=== PATIENT | male | born 1990 | race Caucasian/White ===

== ENCOUNTER 2022-08-27 10:14 | Emergency (ER) | payer SELFPAY ==
[2022-08-27 11:06] VITALS: BP 112/69; PULSE 66; RESP 18; TEMP 36.8; O2SAT 95; BMI 25.5
[2022-08-27 11:51] LABS: PCR FLU A Negative PCR FLU A (Negative); PCR FLU B Negative PCR FLU B (Negative); PCR RSV Negative PCR RSV (Negative)
[2022-08-27 11:53] LABS: SARS PCR* Negative SARS-CoV-2 (Negative)
--- NOTE | 2022-08-27 15:39 | ED_ITS ---
HPI - SOB/Dyspnea General Chief Complaint: Shortness of Breath/Dyspnea Stated Complaint: difficulty breathing Time Seen by Provider: 08/27/22 11:09 History of Present Illness HPI Narrative: 32-year-old man presenting to the emergency department complaint of appears to be primarily exertional dyspnea. Even with just standing. He is finding it very fatiguing to do his work at the moment which is rather physical. Has not had a fever. Is about 8 day of symptoms now worries had some cough though this is not a major component. No fever. Twinges of chest pain perhaps indicates the right upper chest. No rashes noted. Was vaccinated for COVID in [place]. He has had COVID twice apparently early on in the pandemic as well as most recently mid late last year. Did take some time to recover his stamina but until this most recent illness had mostly recovered other than times with his lady. He has been diagnosed with pneumonia in the past as well the chest x-ray. Does not have cardiovascular disease that he knows of. No sense of palpitations or arrhythmia. No extremity edema. Is not a sedentary individual. Does not have reactive airway or other airspace disease. Many years ago did did use an inhaler briefly; sounds like this may have been related to illness. Related Data Home Medications Medication Instructions Recorded Confirmed No Known Home Medications 08/27/22 08/27/22 Allergies Allergy/AdvReac Type Severity Reaction Status Date / Time No Known Drug Allergies Allergy Verified 08/27/22 11:06 Review of Systems Status of ROS: Reports: 10 or more systems reviewed and unremarkable except as noted in History and below [facility] Social History Smoking Status: Never smoker Exam Narrative: Exam Narrative: Pleasant. Easily conversant. Cranial nerves 2-12 intact. Breathing easily. Skin is warm and dry. Extremities without edema. No pain to palpation extremities particularly the lower extremities, negative Homans. There is no supraclavicular crepitus. Breath sounds are clear and throughout. No JVD. Heart is in a regular rhythm without murmur rub or gallop. Abdomen is flat and soft. There is mild discomfort to a point of palpation in the right upper chest a few inches from the sternum. Const: Vital Signs, click to edit/add: Vital Signs - 24 hr 08/27/22 11:06 Temperature 98.3 F Pulse Rate [Right Pulse Oximeter] 66 Respiratory Rate 18 Blood Pressure [Ri ght Upper Arm] 112/69 Pulse Oximetry 95 Oxygen Delivery Me thod Room Air Documenting provider has reviewed patient's vital signs: yes Course Vital Signs Vital signs: Initial Vital Signs Temperature 98.3 F 08/27/22 11:06 Temperature Source Temporal Artery Scan 08/27/22 11:06 Pulse Rate 66 08/27/22 11:06 Respiratory Rate 18 08/27/22 11:06 Blood Pressure 112/69 08/27/22 11:06 Blood Pressure Mean 83 08/27/22 11:06 Blood Pressure Position Sitting 08/27/22 11:06 Pulse Oximetry 95 08/27/22 11:06 Oxygen Delivery Method 08/27/22 11:06 Vital Signs Temperature 98.3 F 08/27/22 11:06 Pulse Rate 66 08/27/22 11:06 Respiratory Rate 18 08/27/22 11:06 Blood Pressure 112/69 08/27/22 11:06 Pulse Oximetry 95 08/27/22 11:06 Oxygen Delivery Method 08/27/22 11:06 Temperature 98.3 F 08/27/22 11:06 Pulse Rate 66 08/27/22 11:06 Respiratory Rate 18 08/27/22 11:06 Blood Pressure 112/69 08/27/22 11:06 Pulse Oximetry 95 08/27/22 11:06 Oxygen Delivery Method 08/27/22 11:06 MDM - SOB/Dyspnea MDM Narrative Medical decision making narrative: Does not seem to be showing evidence of a pneumonia other than the exertional dyspnea. Certainly this could be cardiac in etiology though there has not been history beyond this week. Is in a regular rhythm at this time here. No distress at least at rest. Oxygenating fairly well. Differential does include pneumothorax, pneumonia, influenza or COVID, heart failure, bronchitis, reactive airway, pulmonary embolus. We did discuss potential imaging. I think with absence of fever or more vital instability perhaps can treat as more of a ?bronchitis?. He would appreciate that also being without insurance. Prescribing course of prednisone. If not improved in a few days a course of doxycycline. If he is not improved in around 2 weeks time or clearly worsening with follow-up. Triple screen was ultimately negative. Medical Records Attestation: I reviewed the patient's medical records. Lab Data Attestation: I reviewed the patient's lab results. Labs: Lab Results 08/27/22 Range/Units 11:05 SARS-CoV-2 (PCR) Negative SARS-CoV-2 (Negative) Influenza Type A (PCR) Negative PCR FLU A (Negative) Influenza Type B (PCR) Negative PCR FLU B (Negative) RSV (PCR) Negative PCR RSV (Negative) Discharge Plan Discharge Clinical Impression: Exertional dyspnea, URI (upper respiratory infection) Patient Disposition: Home, Self-Care Condition: Stable Additional Instructions: I will call you any of these tests indicate infection. You can take your prescription to [facility]. Start with the prednisone. If you are not improved in 3 days, you can fill the prescription for doxycycline. Doxycycline is your antibiotic. If symptoms continue for 2 weeks yet, I would make a follow-up in clinic. Be seen sooner though if getting worse or starting to have a fever along with the shortness of breath. Te llamar? si cualquiera de estas pruebas indican infecci?n. Puede llevar staley receta a [facility]. Comience con la prednisona. Si no jordan katherine en 3 d?as, puede surtir la receta de doxiciclina. La doxiciclina es staley antibi?corrine. Si los s?ntomas contin?an johnson 2 semanas todav?a, lenny?a un seguimiento en la cl?ariela. Sin embargo, sea visto antes si empeora o comienza a tener fiebre junto con dificultad para respirar. Prescriptions: No Action No Known Home Medications Stand Alone Forms: [employer] Info Instructions
== END 2022-08-27 12:33 | disposition home or self-care (01) ==
LOC: ED 11:56
PROVIDERS: Emergency Provider Family Medicine
DX: R06.09 Other forms of dyspnea (principal); J06.9 Acute upper respiratory infection, unspecified
CPT/HCPCS: 87502; 87634; 87635; 99283

== ENCOUNTER 2022-09-04 23:18 | Emergency (ER) | payer SELFPAY ==
[2022-09-04 23:33] VITALS: BP 118/74; PULSE 65; RESP 14; TEMP 36.9; O2SAT 97; BMI 30.8
[2022-09-05] VITALS: BP 119/72; PULSE 71; RESP 18; O2SAT 97
[2022-09-05 00:30] VITALS: BP 114/80; PULSE 69; RESP 18; O2SAT 97
--- NOTE | 2022-09-05 00:40 | ED.GENADULT ---
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 He was seems the same thing one week ago and given about three days of prednisone and prescription for doxycycline. He only took the doxycycline for one day because gave him a headache. He felt better on the prednisone and worse since he has stopped it. He was not given inhaler but he has used an inhaler before when he had a chest infection. He works two jobs and one of them is outside in the elements. He has had no fevers or chills. Does not productive cough. Related Data Home Medications Medication Instructions Recorded Confirmed No Known Home Medications 08/27/22 09/04/22 Previous Rx's Medication Instructions Recorded albuterol sulfate 90 mcg/actuation 2 puff inhalation Q4-6H PRN 09/05/22 aerosol inhaler shortness of breath or wheezing #8.5 grams prednisone 20 mg tablet 20 mg PO DAILY #14 tabs 09/05/22 Allergies Allergy/AdvReac Type Severity Reaction Status Date / Time No Known Drug Allergies Allergy Verified 09/04/22 23:42 Review of Systems Narrative: Review of systems is outlined above otherwise noted to be negative [facility] Social History Smoking Status: Never smoker Do you use any of these nicotine containing products: None Second hand tobacco smoke exposure: No How often do you have a drink containing alcohol: 2-3 times a week AUDIT-C Alcohol total score: 3 Non-prescribed substance use: denies use Exam Narrative: Exam Narrative: Vitals noted. HEENT: Conjunctiva clear. Tympanic membranes are pearly white bilaterally. Posterior pharynx is clear without erythema or exudate. Neck is supple without adenopathy, thyromegaly. Lungs: Clear to auscultation in all meng. No wheezes, rales, rhonchi. There is some wheezing with forced expiration. No chest wall tenderness. Heart: Regular rate and rhythm without murmur. Extremities: No cyanosis or edema. Good distal pulses. Skin: No abnormalities noted of the exposed skin. Neurologic: Awake, alert, fully oriented. Neurologic exam is nonfocal. Const: Vital Signs, click to edit/add: Vital Signs - 24 hr 09/04/22 23:33 Temperature 98.4 F Pulse Rate [Pulse Oximeter] 65 Respiratory Rate 14 Blood Pressure [Ri ght Upper Arm] 118/74 Pulse Oximetry 97 Oxygen Delivery Me thod Room Air Course Course Hospital Course: Patient was seen and examined. He is not hypoxic. He has normal vital signs. He does not need intervention here in the emergency department he just needs his prescriptions adjusted. He seems to have some bronchospasm that is exacerbated by working in the cold. I do not see any indication for antibiotics. We discussed a slower prednisone taper and use of albuterol and ibuprofen. Vital Signs Vital signs: Initial Vital Signs Respiratory Effort Spontaneous 09/04/22 23:26 Respiratory Depth Normal 09/04/22 23:26 Respiratory Pattern 09/04/22 23:26 Vital Signs Temperature 98.4 F 09/04/22 23:33 Pulse Rate 65 09/04/22 23:33 Respiratory Rate 14 09/04/22 23:33 Blood Pressure 118/74 09/04/22 23:33 Pulse Oximetry 97 09/04/22 23:33 Oxygen Delivery Method 09/04/22 23:33 Temperature 98.4 F 09/04/22 23:33 Pulse Rate 65 09/04/22 23:33 Respiratory Rate 14 09/04/22 23:33 Blood Pressure 118/74 09/04/22 23:33 Pulse Oximetry 97 09/04/22 23:33 Oxygen Delivery Method 09/04/22 23:33 Discharge Plan Discharge Clinical Impression: Exertional dyspnea Patient Disposition: Home, Self-Care Condition: Stable Additional Instructions: Prednisone taper over 12 days, Albuterol 2 puffs every 4 hours as needed, follow up if no better over the next 3-5 days. Prescriptions: New albuterol sulfate 90 mcg/actuation HFA aerosol inhaler 2 puff inhalation Q4-6H PRN (Reason: shortness of breath or wheezing) Qty: 8.5 0RF prednisone 20 mg tablet 20 mg PO DAILY Qty: 14 0RF Rx Instructions: 2 QD x 4 days then 1 QD x 4 days then 1/2 QD x 4 days No Action No Known Home Medications Follow Up/Referrals: Provider,Not a Local [Primary Care Provider] - Stand Alone Forms: [employer] Info Instructions
[2022-09-05 01:00] VITALS: BP 113/71; PULSE 65; RESP 18; O2SAT 98
== END 2022-09-05 01:20 | disposition home or self-care (01) ==
PROVIDERS: Emergency Provider Family Medicine
DX: R06.09 Other forms of dyspnea (principal)
CPT/HCPCS: 99281; 99283; 99284

== ENCOUNTER 2024-12-25 16:47 | Emergency (ER) | payer OTHER, SELFPAY ==
--- OUTSIDE RECORDS SUMMARY | 2024-12-25 16:50 | XMS_ITS | Clinical Summary ---
Author Organization [facility] Address [address] [place] [address]. [place] [address] Care Team Providers Care Stock And Station Agent Name Role Phone No Ref-Primary, Physician Primary Care Provider Allergies No known active allergies Medications guaiFENesin (MUCINEX) 600 MG 12 hr tablet Take 1 tablet (600 mg) by mouth 2 times daily 10 tablet 11/13/2021 Active Social History Tobacco Use Types Packs/Day Years Used Date Smoking Tobacco: Never Assessed Adolescent Education Answer Date Record ed Getting School Help Needed Not on file 05/09 Sex and Gender Information Value Date Recorded Sex Assigned at Not on file Legal Sex Male 6:32 AM PARENT TRAINER Gender Identity Not on file Sexual Orientation Not on file Last Filed Vital Signs Vital Sign Reading Time Taken Comments Blood Pressure 127/78 09/17/2022 11:29 AM PARENT TRAINER Pulse 62 09/17/2022 11:29 AM PARENT TRAINER Temperature 36.9 C (98.5 F) 09/17/2022 9:28 AM PARENT TRAINER Respiratory Rate 25 09/17/2022 11:29 AM PARENT TRAINER Oxygen Saturation 99% 09/17/2022 11:29 AM PARENT TRAINER Inhaled Oxygen Concentration - - Weight 85 kg (187 lb 6.3 oz) 06/29/2020 6:37 AM PARENT TRAINER Height - - Body Mass Index - - Plan of Treatment Health Maintenance Due Date Last Done Comments ADVANCE CARE PLANNING 1989 ANNUAL REVIEW OF HM ORDERS 1989 YEARLY PREVENTIVE VISIT 1992 HIV SCREENING 2004 HEPATITIS C SCREENING 2007 HEPATITIS B IMMUNIZATION (1 of 3 - 19+ 3-dose series) 2008 DTAP/TDAP/TD IMMUNIZATION (1 - Tdap) 2014 COVID-19 Vaccine (1 - 2023-2 5 season) 2024 PHQ-2 (once per calendar year) 2024 INFLUENZA VACCINE (Season Ended) 2025 DIABETES SCREENING 09/17/2025 09/17/2022, 11/13/2021, 06/29/2020 ZOSTER IMMUNIZATION (1 of 2) 2039 HPV IMMUNIZATION Aged Out No longer e ligible based on patient's age to complete this topic MENINGITIS IMMUNIZATION Aged Out No l onger eligible based on patient's age to complete this topic Pneumococcal Vaccine: Pediatrics (0 to 5 Years) and At-Risk Patients (6 to 49 Years) Aged Out No longer eligible b ased on patient's age to complete this topic Procedures Procedure Name Priority Date/Time Associated Diagnosis Comments BASIC METABOLIC PANEL STAT 09/17/2022 9:42 AM PARENT TRAINER from Last 3 Months or Most Recently Relevant to Health Maintenance Results * (ABNORMAL) Basic metabolic panel (09/17/2022 9:42 AM PARENT TRAINER) Sodium 137 136 - 145 mmol/L 09/17/2022 10:18 AM [facility] Potassium 4.1 3.4 - 5.3 mmol/L 09/17/2022 10:18 AM [facility] Comment:Specimen slightly he molyzed, potassium may be falsely elevated. Chloride 101 98 - 107 mmol/L 09/17/2022 10:18 AM [facility] Carbon Dioxide (CO2) 24 22 - 29 mmol/L 09/17/2022 10:18 AM [facility] Anion Gap 12 7 - 15 mmol/L 09/17/2022 10:18 AM [facility] Urea Nitrogen 18.8 6.0 - 20.0 mg/dL 09/17/2022 10:18 AM [facility] Creatinine 0.77 0.67 - 1.17 mg/dL 09/17/2022 10:18 AM [facility] Calcium 8.9 8.6 - 10.0 mg/dL 09/17/2022 10:18 AM [facility] Glucose 109(H) 70 - 99 mg/dL 09/17/2022 10:18 AM PARENT TRAINER [facility] GFR Estimate >90 >60 mL/min/1.7 3m2 09/17/2022 10:18 AM [facility] Comment:eGFR calculated us2020 CKD-EPI equation. Blood VENOUS LINE / Unknown Venipuncture / Unknown 09/17/2022 9:42 AM PARENT TRAINER 09/17/2022 9:51 AM PARENT TRAINER Fermín Snowden MD LAB - BLOOD ORDERABLES Final R esult LABORATORY [facility] [address] Lab (1st floor, no room number) [place] [address], [facility] [phone] from Last 3 Months or Most Recently Relevant to Health Maintenance Care Teams Stock And Station Agent Relationship Specialty Start Date End Date No Ref-Primary, Physician PCP - General 06/29/20
--- OUTSIDE RECORDS SUMMARY | 2024-12-25 16:50 | XMS_ITS | Data Portability ---
Author Organization [facility] Address [address] [place] [address] [place] [address] Assessment Encounter Date Assessment Date Assessment LastModified by Organization Details LastModified Time 09/01/2023 09/01/2023 - fiber has worked in the past, less helpful currently - trial of Miralax - GI referral for colonoscopy given + family history - reviewed red flag symptoms [email or web address] Not available 09/01/2023 16:11:03 Plan of Treatment Reminders Order Date Submit Date Provider Last Modified By Organization Details Last Modified Time Details Appointments None recorde d. Lab None recorde d. Referral None recorde d. Procedures colonos copy screeni ng (PROC) 2023 024 [email or web address] Not available 12:37:59 Surgeries None recorde d. Imaging RF, colon, w/ air, w/ contras t [place] 2022 023 [email or web address] Not available 4 12:37:59 Medication Orders Miralax 17 gram/do se oral powder 2023 024 [email or web address] [facility], [address] [place] [address], [address], 4 12:37:59 Senokot 8.6 mg tablet 2022 023 [email or web address] [facility], [address] [place], [address], 4 12:37:59 Colace 100 mg capsule 2022 023 [facility], [address] [place], [address], 12:37:59 meloxic am 15 mg tablet 2022 023 [facility], [address] [place], [address], 12:37:59 Patient TargetsNo targets recorded. Patient Instructions Encounter Date Encounter Id Patient Instructions Last Modified By Organization Details Last Modified Time 11/12/2021 [id number] can take meds as necess, incr fiber in diet cortney Not available 11/12/2021 20:08:59 09/23/2022 [id number] take medicine with food, watch for indigestion add vitamins cortney Not available 09/24/2022 13:22:43 11/11/2022 [id number] continue to eat more fruits andvegetables, philip will get a call about the x-ray cortney Not available 11/12/2022 11:12:59 12/29/2022 [id number] increase fruits and vegetables, continue colase, add Senokot, reduce meds when feling better cortney Not available 12/29/2022 15:14:54 Reason for Referral None Reported. Results Created Date Observation Date Name Description Value Unit Range Abnormal Flag Note LastModifiedBy Organization Detail LastModifiedTime 11/21/1911/20/2022 RF, colon , w/ air, w/ contr ast [place] No observ ation record ed. [facility] [address] [place], [address], 09/28/2023 12:37:59 Result Notes None recorded. Problems Name Problem SNOMED Code Status Onset Date Resolution Date Notes Provider Name and Address Organization Details Recorded Time Chronic constipation 768222667 Active 2021 Jean Pierre Shukla MD [address] [place], [address] , [facility] 20:05:37 Post-acute COVID-19 9278094146 Active 2022 [facility] 4 12:37:59 Problem Notes None recorded. Procedures Surgical History None recorded. Imaging Results Imaging Date Name Status LastModified by Organiz ation Details LastModified Time 11/20/2022 RF, colon, w/ air, w/ contrast [place] completed [facility] [address] [place], [address], 09/28/2023 12:37:59 Procedure Notes None recorded. Medical Equipment None Reported. Allergies No known drug allergies Medications Name Sig Start Date Stop Date Status Note LastModified by Organization Details LastModified Time senna 8.6 mg tablet TAKE TWO TABLETS BY MOUTH EVERY DAY active Not Available Not Available No t Available meloxicam 15 mg tablet TAKE ONE TABLET BY MOUTH EVERY DAY 11/11 completed Not Available Not Available Not Available prednisone 20 mg tablet TAKE 2 TABLETS BY MOUTH ONCE DAILY FOR 4 DAYS THEN 1 ONCE DAILY FOR 4 DAYS THEN 1/2 (ONE-HALF ) FOR 4 DAYS THEN STOP 11/11 completed Not Available Not Available Not Available docusate sodium 100 mg capsule TAKE ONE CAPSULE BY MOUTH EVERY DAY active Not Available Not Available No t Available polyethylen e glycol 3350 17 gram/dose oral powder MIX 17 GRAMS IN LIQUID AND DRINK DAILY IN THE MORNING UNTIL COMSTPATI ON HAS RESOLVED active Not Available Not Available No t Available albuterol sulfate HFA 90 mcg/actuati on aerosol inhaler INHALE 2 PUFFS BY MOUTH EVERY 4 TO 6 HOURS NEEDED FOR SHORTNESS OF BREATH OR WHEEZING 11/11 completed Not Available Not Available Not Available doxycycline hyclate 100 mg tablet TAKE ONE TABLET BY MOUTH TWICE A DAY FOR 8 DAYS 11/11 completed Not Available Not Available Not Available Vitals Date Recorded Body weight Heart rate Oxygen saturation Oxygen saturation in Arterial blood by Pulse oximetry Systolic blood pressure Diastolic blood pressure Provider Name and Address Organization Details Last Updated DateTime 3 19547.7 8 g 68 /min 99 % 99 % 122 mm[Hg] 77 mm[Hg] [facility]reya Taylor [facility] 4 12:37:58 Date Recorded Body weight Provider Name an d Address Organization Details Last Updated DateTime 11/11/2022 47550.81 g Shreya Taylor [facility] 09/28/2023 12:37:58 Date Recorded Body weight Respiratory rate Heart rate Body temperature Oxygen saturation Oxygen saturation in Arterial blood by Pulse oximetry Body mass index (BMI) Body height Systolic blood pressure Diastolic blood pressure Provider Name and Address Organization Details Last Updated DateTime 4 81565.2 8 g 22 /min 73 /min 97.2 [degF] 99 % 99 % 32 kg/m2 170.18 cm 133 mm[Hg] 81 mm[Hg] Shreya Taylor [facility] 4 12:37:58 Social History None recorded. Functional Status None recorded. Mental Status None recorded. Family History Relationship Description Onset Age of this Age Resolved Age Notes LastModified by Organization Details LastModified Time Father Malignant tumor of colon [age] [email or web address] Not available 07/2024 12:37:58 Medical History No medical history recorded. Past Encounters Encounter ID Performer Location Encounter Start Date Encounter Closed Date Diagnosis/Indication Diagnosis SNOMED-CT Code Diagnosis ICD10 Code Diagnosis Note [id number] MD [facility] [address] [place] [address] 09/24/2021 18:40:38 09/24/2021 19:18:31 Constipation 59915264 K59.00 given the choice he will continue meds form [place], can be adjusted if he wishes [id number] MD [facility] [address] [place] [id number] 11/12/2021 19:03:38 11/12/2021 20:09:35 Constipation 05744044 K59.00 given the choice he will continue meds form [place], can be adjusted if he wishes [id number] MD [facility] [address] [place] [phone] 09/23/2022 18:29:57 09/23/2022 19:25:46 Post-acute COVID-19 9908729514 U09.9 need records, support and reassuranc e for patient [id number] MD [facility] [address] [place] [phone] 11/11/2022 18:39:31 11/11/2022 19:27:29 Stool finding 236821402 R19.5 although he is young, may have diverticul itis, functional bowel is a possibilit y [id number] Jean Pierre Shukla MD [place] [facility] [address] [facility] [place] [address] 12/29/2022 14:59:13 12/29/2022 16:08:44 Post-acute COVID-19 4882107125 U09.9 as imagining is normal needs more fiber [id number] Lety Pabon MD [facility] [address] [facility] [id number] 09/01/2023 15:21:08 09/01/2023 16:00:15 Constipation 79116201 K59.00 Family his tory of cancer of colon 782588203 Z80.0 Health Concerns Section Related Observation LastModified by Organization Detai ls LastModified Time None Recorded Concern Status LastModified by Organization Details LastModified Time None Recorded Advance Directives Directive None Recorded Payers Encounter Date Sequence Insurance Name Policy Number Policy Rodriguez Covered Member ID Rodriguez Member ID Guarantor Name 11/12/2021 SLIDING FEE SCHEDULE - DISCOUNT Max Chan Posey 09/23/2022 SLIDING FEE SCHEDULE - DISCOUNT Max Chan Posey 11/11/2022 SLIDING FEE SCHEDULE - DISCOUNT Max Chan Posey 12/29/2022 SLIDING FEE SCHEDULE - DISCOUNT Max Chan Posey 09/01/2023 SLIDING FEE SCHEDULE - DISCOUNT Max Chan Posey Notes Date Note Type Note Provider Name and Address Organization Details Recorded Time 11/12/2021 text/html occ cramp in lef t lower quadrant, but much better Jean Pierre Shukla MD [address] [facility] [place] [facility] [place], [address], [facility] 11/12/2021 20:09:20 09/01/2023 text/html Kimberly is in clin ic for concerns of constipation. He's had this in the past 2-3 times, accompanied by abdominal pain. Previously has been diagnosed with colitis, never required treatment with steroids. Current symtpoms include abdominal pain/cramping, constipation (only having small amounts of stool out when he goes), intermittent rectal burning and tenesmus. No melena or hematochezia. No urinary symptoms. Notes symptoms flare during times of stress, has been stressed recently.Normal barium enema last year, has never had a colonoscopy.Father had colon cancer (diagnosed at age 59, at age 60). Lety Pabon MD [address] [place], [address], [facility] - [facility] 09/01/2023 16:12:12
[2024-12-25 16:57] VITALS: BP 119/75; PULSE 77; RESP 16; TEMP 37.4; O2SAT 97; BMI 31.2
--- NOTE | 2024-12-25 18:18 | CRLHL7_ITS ---
For Patients: As a result of the Century Cures Act, medical imaging exams and procedure reports are released immediately into your electronic medical record. You may view this report before your referring provider. If you have questions, please contact your health care provider. INDICATION: Right upper quadrant abdomen pain. TECHNIQUE: Ultrasound abdomen limited. Sonographic images of the right upper quadrant were obtained using cuevas-scale and color Doppler images. COMPARISON: None. FINDINGS: Liver: Liver demonstrates coarse hepatic echotexture and is diffusely echogenic. No suspicious masses. No intrahepatic biliary dilatation. Gallbladder: No stones or sludge. Normal wall thickness. No pericholecystic fluid. Common bile duct: 5 mm. Pancreas: Pancreas is not well seen secondary to bowel gas. Right kidney: Normal in size. Normal echotexture and cortex. No suspicious masses, stones, or hydronephrosis. Vasculature: Proximal abdominal aorta: Normal in caliber. Main portal vein: Patent. Hepatopedal flow. Ascites: None visualized. IMPRESSION: 1. No cholelithiasis or acute cholecystitis. No biliary ductal dilatation. 2. Liver is coarse in echotexture and diffusely echogenic suggestive of parenchymal disease such as steatosis. Dictated by Claudia Rodriguez MD @ 12/25/2024 7:20:32 PM (Electronically Signed)
[2024-12-25 18:40] LABS: Eosinophils Absolute Auto 0.16 K/uL (0.00-0.50); Eosinophils Percent Auto 1.9 % (0.0-7.0); Hematocrit 43.8 % (37.0-53.0); Immature Granulocytes Abs Auto 0.01 K/uL (0.00-0.30); Immature Granulocytes Pct Auto 0.1 %; Lymphocytes Absolute Auto 2.71 K/uL (0.90-2.90); Mean Corpuscular HGB Conc 34 gm/dL (32-36); Mean Corpuscular Hemoglobin 29 pg (26-34); Mean Corpuscular Volume 86 fL (80-100); Monocytes Percent Auto 6.6 % (0.0-11.0); Neutrophils Absolute Auto 5.02 K/uL (1.7-7.0); Neutrophils Percent Auto 59.4 % (42.0-72.0); Platelet Count* 267 K/uL (140-440); RDW Coefficient of Variation % 11.8 % (11.5-15.5); Red Blood Count 5.11 m/uL (4.30-5.90); White Blood Count* 8.46 K/uL (4.50-11.00)
[2024-12-25 18:46] LABS: Slide Review Reflex No
[2024-12-25 18:54] LABS: Albumin* 4.8 g/dL (3.3-5.0); Chloride* 105 mmol/L (96-114); Potassium* 3.9 mmol/L (3.6-5.1); Sodium* 138 mmol/L (135-149)
[2024-12-25 18:56] LABS: Blood Urea Nitrogen* 28 mg/dL (5-24); Creatinine* 0.8 mg/dL (0.5-1.5); Est. Creatinine Clearance* 120.49; Estimated Glomerular Filt Rate 118 ml/min
[2024-12-25 18:57] LABS: Alanine Aminotransferase* 39 U/L (4-50); Alkaline Phosphatase* 67 U/L (40-150); Anion Gap 12 mEq/L (7-15); Aspartate Amino Transferase* 37 U/L (12-35); Bilirubin Direct* 0.3 mg/dL (0.0-0.5); Bilirubin Total* 0.5 mg/dL (0.1-1.5); Calcium* 9.5 mg/dL (8.4-10.6); Carbon Dioxide* 21 mmol/L (20-32); Glucose* 96 mg/dL (60-115); Lipase* 65 U/L (23-300); Total Protein* 7.7 g/dL (6.0-8.3)
--- OUTSIDE RECORDS SUMMARY | 2024-12-25 19:47 | XMS_ITS | Clinical Summary ---
Author Organization [facility] Address [address] [place] [address]. [place] [address] Care Team Providers [employer] Associate Name Role Phone No Ref-Primary, Physician Primary [...] on file Legal Sex Male 6:32 AM CONTROL ROOM TENDER Gender Identity Not on file Sexual Orientation Not on file Last Filed Vital Signs Vital Sign Reading Time Taken Comments Blood Pressure 127/78 09/17/2022 11:29 AM CONTROL ROOM TENDER Pulse 62 09/17/2022 11:29 AM CONTROL ROOM TENDER Temperature 36.9 C (98.5 F) 09/17/2022 9:28 AM CONTROL ROOM TENDER Respiratory Rate 25 09/17/2022 11:29 AM CONTROL ROOM TENDER Oxygen Saturation 99% 09/17/2022 11:29 AM CONTROL ROOM TENDER Inhaled Oxygen Concentration - - Weight 85 kg (187 lb 6.3 oz) 06/29/2020 6:37 AM CONTROL ROOM TENDER Height - - Body Mass Index - [...] BASIC METABOLIC PANEL STAT 09/17/2022 9:42 AM CONTROL ROOM TENDER from Last 3 Months or Most Recently Relevant to Health Maintenance Results * (ABNORMAL) Basic metabolic panel (09/17/2022 9:42 AM CONTROL ROOM TENDER) Sodium 137 136 - 145 mmol/L 09/17/2022 10:18 AM [facility] Potassium 4.1 3.4 - 5.3 mmol/L 09/17/2022 10:18 AM [facility] Comment:Specimen slightly he molyzed, potassium may be falsely elevated. Chloride 101 98 - 107 mmol/L 09/17/2022 10:18 AM [facility] Carbon Dioxide (CO2) 24 22 - 29 mmol/L 09/17/2022 10:18 AM [facility] Anion Gap 12 7 - 15 mmol/L 09/17/2022 10:18 AM [facility] Urea Nitrogen 18.8 6.0 - 20.0 mg/dL 09/17/2022 10:18 AM [facility] Creatinine 0.77 0.67 - 1.17 mg/dL 09/17/2022 10:18 AM [facility] Calcium 8.9 8.6 - 10.0 mg/dL 09/17/2022 10:18 AM [facility] Glucose 109(H) 70 - 99 mg/dL 09/17/2022 10:18 AM [facility] RO[facility] GFR Estimate >90 >60 mL/min/1.7 3m2 09/17/2022 10:18 AM [facility] Comment:eGFR calculated us2020 CKD-EPI equation. Blood VENOUS LINE / Unknown Venipuncture / Unknown 09/17/2022 9:42 AM CONTROL ROOM TENDER 09/17/2022 9:51 AM CONTROL ROOM TENDER Fermín Snowden MD LAB - BLOOD ORDERABLES Final R esult LABORATORY [facility] [address] Lab (1st floor, no room number) [place] [address], [facility] [phone] from Last 3 Months or Most Recently Relevant to Health Maintenance Care Teams [employer] Associate Relationship Specialty Start Date End Date No Ref-Primary, Physician PCP - General 06/29/20
--- NOTE | 2024-12-25 19:57 | ED.ABDPAIN ---
HPI - Abdominal Pain General Date Seen: 12/25/24 Chief Complaint: Abdominal Pain Stated Complaint: Liver Pain Time Seen by Provider: 12/25/24 17:51 Source: patient Mode of arrival: ambulatory Limitations: no limitations History of Present Illness HPI narrative: Patient is a 34-year-old male presenting for right upper quadrant pain. He has been having this pain on and off now for a month. Was previously seen for a hernia in on that exam he was found to have fatty liver disease. Has been changing his diet and trying to eat better but continues to have symptoms. Will typically have pain when he will eat certain foods but now seems to have pain in the right upper quadrant whenever he eats. Still has his gallbladder. Does not drink any alcohol. No other medical issues. Has not had any previous abdominal surgeries. Denies any associated nausea. Pain has improved today. States pain when occurs now seems to wrap to his back. Denies any lightheadedness or dizziness. No other concerns noted. Related Data Home Medications ?Medication ?Instructions ?Recorded ?Confirmed No Known Home Medications 12/25/24 12/25/24 Allergies Allergy/AdvReac Type Severity Reaction Status Date / Time No Known Drug Allergies Allergy Verified 12/25/24 17:07 Review of Systems Status of ROS Reports: 10 or more systems reviewed and unremarkable except as noted in History and below PFSH [facility] Social History Smoking Status: Never smoker Do you use any of these nicotine containing products: None Second hand tobacco smoke exposure: No How often do you have a drink containing alcohol: 2-3 times a week AUDIT-C Alcohol total score: 3 Non-prescribed substance use: denies use Exam Narrative: Exam Narrative: Const: Well-nourished, Well-developed, in no distress Eyes: PERRL, no conjunctival injection, and symmetrical lids HENT: Atraumatic external nose and ears. Moist mucous membranes. Neck: Symmetric, trachea midline, No thyromegaly. CVS: RRR, No murmurs or gallops. Peripheral pulses 2+ and equal in all extremities RESP: Unlabored respiratory effort. Clear to auscultation bilaterally. GI: Mild tenderness to palpation right upper quadrant, No rebound or guarding. Negative Connolly sign MSK:Extremities w/o deformity, Normal Active ROM Skin: Warm, Dry. No rashes or lesions. Neuro: Normal Muscle tone, No focal neurological deficits. Psych: Awake, Alert, & Oriented x3. Appropriate mood and affect. Const: Vital Signs, click to edit/add: Vital Signs - 24 hr 12/25/24 16:57 Temperature 99.4 F Pulse Rate [Pulse Oximeter] 77 Respiratory Rate 16 Blood Pressure [Ri ght Upper Arm] 119/75 Pulse Oximetry 97 Oxygen Delivery Me thod Room Air Course Vital Signs Vital signs: Initial Vital Signs Temperature 99.4 F 12/25/24 16:57 Temperature Source Temporal Artery Scan 12/25/24 16:57 Pulse Rate 77 12/25/24 16:57 Respiratory Rate 16 12/25/24 16:57 Blood Pressure 119/75 12/25/24 16:57 Blood Pressure Mean 89 12/25/24 16:57 Blood Pressure Position Sitting 12/25/24 16:57 Pulse Oximetry 97 12/25/24 16:57 Oxygen Delivery Method Room Air 12/25/24 16:57 Vital Signs Temperature 99.4 F 12/25/24 16:57 Pulse Rate 77 12/25/24 16:57 Respiratory Rate 16 12/25/24 16:57 Blood Pressure 119/75 12/25/24 16:57 Pulse Oximetry 97 12/25/24 16:57 Oxygen Delivery Method Room Air 12/25/24 16:57 Temperature 99.4 F 12/25/24 16:57 Pulse Rate 77 12/25/24 16:57 Respiratory Rate 16 12/25/24 16:57 Blood Pressure 119/75 12/25/24 16:57 Pulse Oximetry 97 12/25/24 16:57 Oxygen Delivery Method Room Air 12/25/24 16:57 MDM - Abdominal Pain MDM Narrative Medical decision making narrative: Patient is a 34-year-old male presenting to the emergency department for right upper quadrant pain. He has known fatty liver disease. Does not drink alcohol. Has not had any formal imaging of his abdomen he states. I will do an ultrasound was right upper quadrant to look for gallbladder and liver disease. Will do a lipase look for signs of pancreatitis. I am unable to find any previously charts on him in [employer] and [employer]. Does not request anything for pain or nausea. Lab work all returned showing no concerning abnormalities. He has very mildly elevated AST at 37. Rest of his liver function test is normal. Abdominal ultrasound shows no acute concerning abnormalities. Shows the fatty liver disease that is already known. No obvious signs of gallbladder disease at this time. He may need an eventual HIDA scan. At this time though I see no acute concerning abnormalities. I believe he is safe for discharge and he is agreeable to this plan. Lab Data Labs: Lab Results 12/25/24 Range/Units 18:34 WBC 8.46 (4.50-11.00) K/uL RBC 5.11 (4.30-5.90) m/uL Hgb 15.0 (13.5-17.5) gm/dL Hct 43.8 (37.0-53.0) % MCV 86 (80-100) fL MCH 29 (26-34) pg MCHC 34 (32-36) gm/dL RDW Coeff of Angie 11.8 (11.5-15.5) % Plt Count 267 (140-440) K/uL Neut % (Auto) 59.4 (42.0-72.0) % Lymph % (Auto) 32.0 (20-44) % [place] % (Auto) 6.6 (0.0-11.0) % Eos % (Auto) 1.9 (0.0-7.0) % Baso % (Auto) 0.0 (0.0-3.0) % Neut # (Auto) 5.02 (1.7-7.0) K/uL Lymph # (Auto) 2.71 (0.90-2.90) K/uL [place] # (Auto) 0.60 (0.00-0.90) K/UL Eos # (Auto) 0.16 (0.00-0.50) K/uL Baso # (Auto) 0.00 (0.00-0.30) K/uL Abs Immat Gran (auto) 0.01 (0.00-0.30) K/uL Imm/Tot Granulo (auto) 0.1 % Sodium 138 (135-149) mmol/L Potassium 3.9 (3.6-5.1) mmol/L Chloride 105 (96-114) mmol/L Carbon Dioxide 21 (20-32) mmol/L Anion Gap 12 (7-15) mEq/L BUN 28 H (5-24) mg/dL Creatinine 0.8 (0.5-1.5) mg/dL Estimated Creat Clear 120.49 Estimated GFR 118 ml/min Glucose 96 (60-115) mg/dL Calcium 9.5 (8.4-10.6) mg/dL Total Bilirubin 0.5 (0.1-1.5) mg/dL Direct Bilirubin 0.3 (0.0-0.5) mg/dL AST 37 H (12-35) U/L ALT 39 (4-50) U/L Alkaline Phosphatase 67 (40-150) U/L Total Protein 7.7 (6.0-8.3) g/dL Albumin 4.8 (3.3-5.0) g/dL Lipase 65 (23-300) U/L Discharge Plan Discharge Clinical Impression: Abdominal pain Qualifiers: Abdominal location: right upper quadrant Qualified Code(s): R10.11 - Right upper quadrant pain Patient Disposition: Home, Self-Care Condition: Stable Instructions: HIDA Scan (DC), Abdominal Pain (ED) Additional Instructions: There still might be a possibility your symptoms are related to gallbladder disease. You may need to get an eventual outpatient HIDA scan. Take ibuprofen for pain. Stay away from Tylenol as had can negatively effects your liver. Try to eat-sugar and stay away from alcohol. Do recommend follow-up with your primary care provider for this possible HIDA scan. Prescriptions: No Action No Known Home Medications Follow Up/Referrals: Provider,Not a Local [Primary Care Provider] - Stand Alone Forms: [employer] Info Instructions
[2024-12-25 20:13] VITALS: BP 112/71; PULSE 62; RESP 16
== END 2024-12-25 20:14 | disposition home or self-care (01) ==
PROVIDERS: Emergency Provider Student in an Organized Health Care Education/Training Program
DX: R10.11 Right upper quadrant pain (principal)
CPT/HCPCS: 36415; 76705; 80048; 80076; 83690; 85025; 99283; 99284